=== PATIENT | male | born 1940 | race American Indian/Alaskan Native ===

== ENCOUNTER 2020-09-19 11:39 | Day surgery (SDC) | payer MEDICARE ==
[2020-09-19 12:59] LABS: Basophils % (Auto) 0.4 % (0.0-1.8); Eosinophils # (Auto) 0.1 K/mm3 (0.0-0.4); Eosinophils % (Auto) 1.8 % (0.0-4.3); Hematocrit 40.8 % (35.5-45.6); Hemoglobin 13.6 gm/dl (11.8-15.2); Lymphocytes # (Auto) 0.8 K/mm3 (1.2-5.4); Lymphocytes % (Auto) 16.1 % (13.4-35.0); Mean Corpuscular HGB Conc 33 % (32-34); Mean Corpuscular Volume 90 fl (84-94); Monocytes # (Auto) 0.3 K/mm3 (0.0-0.8); Monocytes % (Auto) 6.1 % (0.0-7.3); Platelet Count 187 K/mm3 (140-440); Red Blood Count 4.54 M/mm3 (3.65-5.03); Red Cell Distribution Width 15.2 % (13.2-15.2)
[2020-09-19] MEDS ORDERED: SODIUM CHLORIDE 0.9% 500 ML 500 ML IV SCH (13:00)
[2020-09-19 13:10] LABS: INR 0.98 (0.87-1.13)
[2020-09-19 13:11] LABS: Partial Thromboplastin Time 26.6 Sec. (24.2-36.6)
[2020-09-19 13:12] LABS: Calcium 9.4 mg/dL (8.4-10.2)
[2020-09-19] MEDS ORDERED: SODIUM CHLORIDE IRRI 500 ML 500 ML IR ONE (14:20)
[2020-09-19] MEDS ORDERED: ceFAZolin/Water 2 GM/20 ML 2 GM/20 ML SYRINGE IV ONE (14:21)
[2020-09-19] MEDS ORDERED: LIDOCAINE (1%) 10 MG/1 ML VIAL 20 ML MDV ONE (14:21)
[2020-09-19] MEDS ORDERED: BUPIVACAINE/PF (0.5%) 5 MG/1 ML 30 ML VIAL INFILTRATI ONE (14:21)
[2020-09-19] MEDS ORDERED: fentaNYL 100 MCG/2 ML INJ ONE (14:22)
[2020-09-19] MEDS ORDERED: MIDAZOLAM 2 MG/2 ML INJ ONE (14:22)
[2020-09-19] MEDS ORDERED: SODIUM CHLORIDE 0.9% 500 ML 500 ML ONE (14:23)
[2020-09-19] MEDS ORDERED: hydrALAZINE 20 MG/1 ML INJ ONE (14:45)
--- NOTE | 2020-09-19 15:03 | Short Stay Summary ---
Short Stay Documentation Date of service: 09/19/20 - History H&P: obtained from office - Allergies and Medications Current Medications: Allergies No Known Allergies Allergy (Unverified 12/20/15 09:20) Home Medications Medication Instructions Recorded Confirmed Last Taken Type Aspirin [Adult Aspirin] 81 mg PO DAILY 09/19/20 09/19/20 09/18/20 History Hydralazine HCl 50 mg PO BID 09/19/20 09/19/20 09/18/20 History Prazosin 1 cap PO BID 09/19/20 09/19/20 09/18/20 History amLODIPine [Norvasc] 10 mg PO DAILY 09/19/20 09/19/20 09/18/20 History Active Medications Sodium Chloride (Nacl 0.9% 500 Ml) 500 mls @ 50 mls/hr IV DIRECT LAVON - Physical exam Integumentary: other (site is clean, tegaderm intact, no bleed or hematoma) - Brief post op/procedure progress note Date of procedure: 09/19/20 Pre-op diagnosis: syncope Post-op diagnosis: same Anesthesia: local Estimated blood loss: minimal - Disposition Condition at discharge: Good Disposition: [id number] TO HOME OR SELFCARE - Discharge Diagnoses (1) Syncope Status: Acute Short Stay Discharge Plan Activity: advance as tolerated Diet: low fat, low salt Wound: keep clean and dry, per your surgeon's advice Additional Instructions: Patient has follow up appointment on 09/27/2020 at 01:00pm at [facility], [facility], [facility], [facility]. [id number] Follow up with: DENISE WRIGHT MD [Primary Care Provider] - 7 Days
[2020-09-19 15:49] VITALS: BP 144/68
== END 2020-09-19 16:10 | disposition home or self-care (01) ==
LOC: CATHLABREC 11:39
PROVIDERS: ATTEND Internal Medicine Cardiovascular Disease
DX: R00.2 Palpitations (principal); R00.1 Bradycardia, unspecified; I12.9 Hypertensive chronic kidney disease with stage 1 through stage 4 chronic kidney disease, or unspecified chronic kidney disease; N18.9 Chronic kidney disease, unspecified; I44.0 Atrioventricular block, first degree; G47.33 Obstructive sleep apnea (adult) (pediatric); Z79.82 Long term (current) use of aspirin; Z79.899 Other long term (current) drug therapy; Z98.890 Other specified postprocedural states
CPT/HCPCS: 33285; 36415; 80048; 85025; 85610; 85730; C1764; J0360; J0690; J2250; J3010; J7040